=== PATIENT | female | born 1990 | race American Indian/Alaskan Native ===

== ENCOUNTER 2017-11-22 00:33 | Emergency (ER) | payer OTHER ==
[2017-11-22 02:33] LABS: Basophils % (Auto) 0.3 % (0.0-1.8); Eosinophils # (Auto) 0.1 K/mm3 (0.0-0.4); Eosinophils % (Auto) 0.8 % (0.0-4.3); Hematocrit 37.7 % (30.3-42.9); Hemoglobin 12.9 gm/dl (10.1-14.3); Lymphocytes # (Auto) 2.5 K/mm3 (1.2-5.4); Lymphocytes % (Auto) 21.8 % (13.4-35.0); Mean Corpuscular HGB Conc 34 % (30-34); Mean Corpuscular Hemoglobin 29 pg (28-32); Mean Corpuscular Volume 85 fl (79-97); Monocytes # (Auto) 0.7 K/mm3 (0.0-0.8); Monocytes % (Auto) 5.9 % (0.0-7.3); Platelet Count 296 K/mm3 (140-440); Red Blood Count 4.45 M/mm3 (3.65-5.03); Red Cell Distribution Width 14.8 % (13.2-15.2)
[2017-11-22 02:52] LABS: Alanine Aminotransferase 12 units/L (7-56); Albumin 3.7 g/dL (3.9-5); BUN/Creatinine Ratio 15; Blood Urea Nitrogen 6 mg/dL (7-17); Calcium 9.3 mg/dL (8.4-10.2); Hemolysis Index 12
[2017-11-22 03:13] LABS: Bilirubin,Urine NEG (Negative); Blood,Urine NEG (Negative); Color,Urine Yellow (Yellow); Protein,Urine <15 mg/dL mg/dL (Negative); Urobilinogen,Urine < 2.0 mg/dL (<2.0)
--- NOTE | 2017-11-22 07:07 | Emergency Department Report ---
ED Female HPI - General Chief complaint: Abdominal Pain Stated complaint: ABDOMINAL PAIN Time Seen by Provider: 11/22/17 06:50 Source: patient, RN notes reviewed Mode of arrival: Ambulatory Limitations: No Limitations - History of Present Illness Initial comments: This is a 27-year-old female who was previously unknown to this provider. She is 1, para 0. Last menstrual period is September 14. Reports an outpatient ultrasound, does not have a gifts officer so far. Presents to the ER with resolved left lower quadrant pain. Her pain was achy. It did not radiate anywhere. It had no exacerbating or relieving factors. Denies headache, neck pain, chest pain, vaginal bleeding urinary symptoms. She reports no pain at this time. Patient reports an outpatient ultrasound performed last week, which indicated an intrauterine . MD Complaint: other -: Gradual Radiation: LLQ Severity: mild Quality: cramping Consistency: now resolved Improves with: none Worsens with: none Are you Now?: Yes Associated Symptoms: other (constipation). denies: vaginal discharge, vaginal bleeding, abdominal pain, nausea/vomiting, fever/chills, headaches, loss of appetite, dysuria, hematuria, rash, seizure, shortness of breath, syncope, weakness - Related Data Sexually active: Yes Previous Rx's Medication Instructions Recorded Last Taken Type Cyclobenzaprine HCl [FLEXERIL] 5 mg PO TID PRN #15 tablet 06/21/13 Unknown Rx Ibuprofen [Motrin 800 MG tab] 800 mg PO TID PRN #25 tablet 06/21/13 Unknown Rx Sennosides Tab [Senokot] 8.6 mg PO BID #20 tablet 05/05/14 Unknown Rx Doxylamine Succinate/Vit B6 1 each PO QHS PRN #30 tablet. 11/22/17 Unknown Rx [Harlan Haro 10-10 mg Tablet] Vit Calc,Iron,Folic 1 each PO QDAY #30 tablet 11/22/17 Unknown Rx [ Vitamins] Allergies Allergy/AdvReac Type Severity Reaction Status Date / Time No Known Allergies Allergy Verified 06/21/13 21:36 ED Review of Systems ROS: Stated complaint: ABDOMINAL PAIN Other details as noted in HPI Comment: All other systems reviewed and negative ED Past Medical Hx - Past Medical History Previous Medical History?: No - Surgical History Past Surgical History?: No - Social History Smoking Status: Never Smoker Substance Use Type: None - Medications Home Medications: Home Medications Medication Instructions Recorded Confirmed Last Taken Type Cyclobenzaprine HCl [FLEXERIL] 5 mg PO TID PRN #15 tablet 06/21/13 Unknown Rx Ibuprofen [Motrin 800 MG tab] 800 mg PO TID PRN #25 tablet 06/21/13 Unknown Rx Sennosides Tab [Senokot] 8.6 mg PO BID #20 tablet 05/05/14 Unknown Rx Doxylamine Succinate/Vit B6 1 each PO QHS PRN #30 tablet. 11/22/17 Unknown Rx [Diclegis Dr 10-10 mg Tablet] Vit Calc,Iron,Folic 1 each PO QDAY #30 tablet 11/22/17 Unknown Rx [ Vitamins] ED Physical Exam - General Limitations: No Limitations General appearance: alert, in no apparent distress - Head Head exam: Present: atraumatic, normocephalic - Eye Eye exam: Present: normal appearance, EOMI. Absent: nystagmus - ENT ENT exam: Present: normal exam, normal orophraynx, mucous membranes moist, normal external ear exam - Neck Neck exam: Present: normal inspection, full ROM - Respiratory Respiratory exam: Present: normal lung sounds bilaterally. Absent: respiratory distress - Cardiovascular Cardiovascular Exam: Present: regular rate, normal rhythm, normal heart sounds. Absent: systolic murmur, diastolic murmur, rubs, gallop - GI/Abdominal GI/Abdominal exam: Present: soft, normal bowel sounds. Absent: distended, tenderness, guarding, rebound, rigid, pulsatile mass - Extremities Exam Extremities exam: Present: normal inspection, full ROM, normal capillary refill. Absent: pedal edema, joint swelling, calf tenderness - Back Exam Back exam: Present: normal inspection, full ROM. Absent: tenderness, CVA tenderness (R), paraspinal tenderness, vertebral tenderness - Neurological Exam Neurological exam: Present: alert, oriented X3, CN II-XII intact, normal gait, other (Extraocular movements intact. Tongue midline. No facial droop. Facial sensation intact to light touch in the V1, V2, V3 distribution bilaterally. 5 and 5 strength in 4 extremities.. Sensation is intact to light touch in 4 extremities.). Absent: motor sensory deficit - Psychiatric Psychiatric exam: Present: normal affect, normal mood - Skin Skin exam: Present: warm, dry, intact, normal color. Absent: rash ED Course Vital Signs 11/22/17 11/22/17 11/22/17 00:41 02:10 06:06 Temperature 98.7 F 98.7 F Pulse Rate 80 80 Respiratory 18 18 Rate Blood Pressure 104/63 104/63 Blood Pressure [Left] O2 Sat by Pulse 100 100 100 Oximetry 11/22/17 07:44 Temperature 98.3 F Pulse Rate 68 Respiratory 16 Rate Blood Pressure Blood Pressure 102/56 [Left] O2 Sat by Pulse 100 Oximetry - Reevaluation(s) Reevaluation #1: 11/22/17 07:06 Lab Results 11/22/17 11/22/17 11/22/17 Range/Units 02:14 02:21 02:21 WBC 11.3 H (4.5-11.0) K/mm3 RBC 4.45 (3.65-5.03) M/mm3 Hgb 12.9 (10.1-14.3) gm/dl Hct 37.7 (30.3-42.9) % MCV 85 (79-97) fl MCH 29 (28-32) pg MCHC 34 (30-34) % RDW 14.8 (13.2-15.2) % Plt Count 296 (140-440) K/mm3 Lymph % (Auto) 21.8 (13.4-35.0) % Osborne % (Auto) 5.9 (0.0-7.3) % Eos % (Auto) 0.8 (0.0-4.3) % Baso % (Auto) 0.3 (0.0-1.8) % Lymph # 2.5 (1.2-5.4) K/mm3 Osborne # 0.7 (0.0-0.8) K/mm3 Eos # 0.1 (0.0-0.4) K/mm3 Baso # 0.0 (0.0-0.1) K/mm3 Seg Neutrophils % 71.2 H (40.0-70.0) % Seg Neutrophils # 8.0 H (1.8-7.7) K/mm3 Sodium (137-145) mmol/L Potassium (3.6-5.0) mmol/L Chloride (98-107) mmol/L Carbon Dioxide (22-30) mmol/L Anion Gap mmol/L BUN (7-17) mg/dL Creatinine (0.7-1.2) mg/dL Estimated GFR ml/min BUN/Creatinine Ratio % Glucose (65-100) mg/dL Calcium (8.4-10.2) mg/dL Total Bilirubin (0.1-1.2) mg/dL AST (5-40) units/L ALT (7-56) units/L Alkaline Phosphatase (35-129) units/L Total Protein (6.3-8.2) g/dL Albumin (3.9-5) g/dL Albumin/Globulin Ratio % HCG, Quant 65256 H (0-4) mIU/mL Urine Color Yellow (Yellow) Urine Turbidity Clear (Clear) Urine pH 6.0 (5.0-7.0) Ur Specific Hamilton 1.013 (1.003-1.030) Urine Protein <15 mg/dl (Negative) mg/dL Urine Glucose (UA) Neg (Negative) mg/dL Urine Ketones Neg (Negative) mg/dL Urine Blood Neg (Negative) Urine Nitrite Neg (Negative) Urine Bilirubin Neg (Negative) Urine Urobilinogen < 2.0 (<2.0) mg/dL Ur Leukocyte Esterase Sm (Negative) Urine WBC (Auto) 3.0 (0.0-6.0) /HPF Urine RBC (Auto) 3.0 (0.0-6.0) /HPF U Epithel Cells (Auto) 4.0 (0-13.0) /HPF 11/22/17 Range/Units 02:21 WBC (4.5-11.0) K/mm3 RBC (3.65-5.03) M/mm3 Hgb (10.1-14.3) gm/dl Hct (30.3-42.9) % MCV (79-97) fl MCH (28-32) pg MCHC (30-34) % RDW (13.2-15.2) % Plt Count (140-440) K/mm3 Lymph % (Auto) (13.4-35.0) % Osborne % (Auto) (0.0-7.3) % Eos % (Auto) (0.0-4.3) % Baso % (Auto) (0.0-1.8) % Lymph # (1.2-5.4) K/mm3 Osborne # (0.0-0.8) K/mm3 Eos # (0.0-0.4) K/mm3 Baso # (0.0-0.1) K/mm3 Seg Neutrophils % (40.0-70.0) % Seg Neutrophils # (1.8-7.7) K/mm3 Sodium 133 L (137-145) mmol/L Potassium 3.5 L (3.6-5.0) mmol/L Chloride 96.0 L (98-107) mmol/L Carbon Dioxide 24 (22-30) mmol/L Anion Gap 17 mmol/L BUN 6 L (7-17) mg/dL Creatinine 0.4 L (0.7-1.2) mg/dL Estimated GFR > 60 ml/min BUN/Creatinine Ratio 15 % Glucose 92 (65-100) mg/dL Calcium 9.3 (8.4-10.2) mg/dL Total Bilirubin 0.20 (0.1-1.2) mg/dL AST 14 (5-40) units/L ALT 12 (7-56) units/L Alkaline Phosphatase 61 (35-129) units/L Total Protein 6.5 (6.3-8.2) g/dL Albumin 3.7 L (3.9-5) g/dL Albumin/Globulin Ratio 1.3 % HCG, Quant (0-4) mIU/mL Urine Color (Yellow) Urine Turbidity (Clear) Urine pH (5.0-7.0) Ur Specific Hamilton (1.003-1.030) Urine Protein (Negative) mg/dL Urine Glucose (UA) (Negative) mg/dL Urine Ketones (Negative) mg/dL Urine Blood (Negative) Urine Nitrite (Negative) Urine Bilirubin (Negative) Urine Urobilinogen (<2.0) mg/dL Ur Leukocyte Esterase (Negative) Urine WBC (Auto) (0.0-6.0) /HPF Urine RBC (Auto) (0.0-6.0) /HPF U Epithel Cells (Auto) (0-13.0) /HPF Vital Signs 11/22/17 11/22/17 11/22/17 00:41 02:10 06:06 Temperature 98.7 F 98.7 F Pulse Rate 80 80 Respiratory 18 18 Rate Blood Pressure 104/63 104/63 O2 Sat by Pulse 100 100 100 Oximetry Reevaluation #2: 0508/18 07:06 Differential diagnosis, including but not limited to: Miscarriage, threatened miscarriage, constipation Assessment and plan: 27-year-old female with no vaginal bleeding, no pain at this time, has a soft benign belly, with no rebound, guarding or peritoneal signs. There is no lower quadrant tenderness at this time. When this provider walks into the room to examine the patient, she is sleeping comfortably and in no distress. We do not have access to her outpatient ultrasound. We will repeat her obstetrics ultrasound. Laboratory studies reviewed, and are unremarkable at this time. Reevaluation #3: 11/22/17 07:45 Belly remained soft on repeat examination. Intrauterine is confirmed. Small subchorionic bleed is noted. Type and screen is pending. Patient is drinking without difficulty. ED Medical Decision Making - Lab Data Result diagrams: 11/22/17 02:21 11/22/17 02:21 Vital Signs 11/22/17 11/22/17 11/22/17 00:41 02:10 06:06 Temperature 98.7 F 98.7 F Pulse Rate 80 80 Respiratory 18 18 Rate Blood Pressure 104/63 104/63 Blood Pressure [Left] O2 Sat by Pulse 100 100 100 Oximetry 11/22/17 07:44 Temperature 98.3 F Pulse Rate 68 Respiratory 16 Rate Blood Pressure Blood Pressure 102/56 [Left] O2 Sat by Pulse 100 Oximetry Labs 11/22/17 11/22/17 11/22/17 02:14 02:21 02:21 WBC 11.3 H RBC 4.45 Hgb 12.9 Hct 37.7 MCV 85 MCH 29 MCHC 34 RDW 14.8 Plt Count 296 Lymph % (Auto) 21.8 Osborne % (Auto) 5.9 Eos % (Auto) 0.8 Baso % (Auto) 0.3 Lymph # 2.5 Osborne # 0.7 Eos # 0.1 Baso # 0.0 Seg Neutrophils % 71.2 H Seg Neutrophils # 8.0 H Sodium Potassium Chloride Carbon Dioxide Anion Gap BUN Creatinine Estimated GFR BUN/Creatinine Ratio Glucose Calcium Total Bilirubin AST ALT Alkaline Phosphatase Total Protein Albumin Albumin/Globulin Ratio HCG, Quant 29311 H Urine Color Yellow Urine Turbidity Clear Urine pH 6.0 Ur Specific Hamilton 1.013 Urine Protein <15 mg/dl Urine Glucose (UA) Neg Urine Ketones Neg Urine Blood Neg Urine Nitrite Neg Urine Bilirubin Neg Urine Urobilinogen < 2.0 Ur Leukocyte Esterase Sm Urine WBC (Auto) 3.0 Urine RBC (Auto) 3.0 U Epithel Cells (Auto) 4.0 11/22/17 02:21 WBC RBC Hgb Hct MCV MCH MCHC RDW Plt Count Lymph % (Auto) Osborne % (Auto) Eos % (Auto) Baso % (Auto) Lymph # Osborne # Eos # Baso # Seg Neutrophils % Seg Neutrophils # Sodium 133 L Potassium 3.5 L Chloride 96.0 L Carbon Dioxide 24 Anion Gap 17 BUN 6 L Creatinine 0.4 L Estimated GFR > 60 BUN/Creatinine Ratio 15 Glucose 92 Calcium 9.3 Total Bilirubin 0.20 AST 14 ALT 12 Alkaline Phosphatase 61 Total Protein 6.5 Albumin 3.7 L Albumin/Globulin Ratio 1.3 HCG, Quant Urine Color Urine Turbidity Urine pH Ur Specific Hamilton Urine Protein Urine Glucose (UA) Urine Ketones Urine Blood Urine Nitrite Urine Bilirubin Urine Urobilinogen Ur Leukocyte Esterase Urine WBC (Auto) Urine RBC (Auto) U Epithel Cells (Auto) - Radiology Data Radiology results: report reviewed, image reviewed Obstetrics ultrasound demonstrates 10 week intrauterine , small subchorionic hemorrhage Critical care attestation.: If time is entered above; I have spent that time in minutes in the direct care of this critically ill patient, excluding procedure time. ED Disposition Clinical Impression: Subchorionic hemorrhage Qualifiers: Fetus number: single or unspecified fetus Trimester: first trimester Qualified Code(s): O41.8X10 - Other specified disorders of amniotic fluid and membranes, first trimester, not applicable or unspecified; O46.8X1 - Other antepartum hemorrhage, first trimester Disposition: TO HOME OR SELFCARE Is pt being admited?: No Does the pt Need Aspirin: No Condition: Stable Instructions: Threatened Miscarriage (ED) Additional Instructions: Take medications as needed/directed. follow up with an [facility] doctor as soon as possible to continue care. Rest, and avoid heavy lifting and avoid strenuous physical activity. Do not have sex until cleared by a gifts officer. Return to the ER right away with new pain, worsening pain, migration of pain, fevers, chills, confusion, intractable nausea or vomiting, bleeding more than 2 pads per hour, lightheadedness, shortness of breath. Ultrasound demonstrated subchorionic hemorrhage which is a form of threatened miscarriage, therefore patient may have the potential to experience vaginal bleeding in the near future. Referrals: NEFTALI HAQUE MD [Primary Care Provider] - 3-5 Days [facility] [Provider Group] - 3-5 Days [facility] [Provider Group] - 3-5 Days [facility] [Provider Group] - 3-5 Days
--- NOTE | 2017-11-22 07:39 | Ultrasound Report ---
ULTRASOUND OB LESS THAN 14 WEEKS FETUS ULTRASOUND OB TRANSVAGINAL HISTORY: with abdominal pain. COMPARISON: No relevant comparison. TECHNIQUE: Transabdominal and transvaginal ultrasound with color doppler interrogation. FINDINGS: Uterus: The uterus is anteverted and measures 13 x 7 x 9 cm. No uterine mass is appreciated. Normal cervix. Endometrium: A viable intrauterine is identified with heart rate measuring 166 beats per minute. [place] rump length correlates with a 10 week, 0 day . Estimated due date 06/20/18. A small subchorionic hemorrhage is identified along the anterior border of the gestational sac measuring less than 1 cm. Right ovary: 3.6 x 2.5 x 2.6 cm. No focal abnormality. Left ovary: 3.0 x 1.3 x 2.0 cm. No focal abnormality. No pelvic fluid or mass is identified. Normal color doppler interrogation. IMPRESSION: Viable intrauterine as described. Small subchorionic hemorrhage.
[2017-11-22 07:45] VITALS: BP 102/56
== END 2017-11-22 09:00 | disposition home or self-care (01) ==
LOC: ED 00:33
DX: O46.91 Antepartum hemorrhage, unspecified, first trimester (principal); Z3A.10 10 weeks gestation of pregnancy
CPT/HCPCS: 36415; 76801; 76817; 80053; 81001; 84702; 85025; 86850; 86900; 86901; 99284

== ENCOUNTER 2017-12-07 11:15 | Emergency (ER) | payer OTHER, MEDICAID ==
[2017-12-07 11:26] VITALS: BP 112/71
[2017-12-07 12:08] LABS: Bacteria,Urine 4+ /HPF (Negative); Bilirubin,Urine NEG (Negative); Blood,Urine MOD (Negative); Color,Urine Yellow (Yellow); Mucus,Urine FEW /HPF; Protein,Urine <15 mg/dL mg/dL (Negative)
[2017-12-07 12:24] LABS: Basophils # (Auto) 0.1 K/mm3 (0.0-0.1); Basophils % (Auto) 0.7 % (0.0-1.8); Eosinophils % (Auto) 0.4 % (0.0-4.3); Hematocrit 38.7 % (30.3-42.9); Hemoglobin 13.5 gm/dl (10.1-14.3); Lymphocytes # (Auto) 1.8 K/mm3 (1.2-5.4); Lymphocytes % (Auto) 18.7 % (13.4-35.0); Mean Corpuscular HGB Conc 35 % (30-34); Mean Corpuscular Hemoglobin 29 pg (28-32); Mean Corpuscular Volume 85 fl (79-97); Monocytes # (Auto) 0.7 K/mm3 (0.0-0.8); Monocytes % (Auto) 7.3 % (0.0-7.3); Red Blood Count 4.58 M/mm3 (3.65-5.03); Red Cell Distribution Width 14.1 % (13.2-15.2)
[2017-12-07 12:26] LABS: Platelet Count 286 K/mm3 (140-440)
--- NOTE | 2017-12-07 14:12 | Ultrasound Report ---
ULTRASOUND OB LESS THAN 14 WEEKS FETUS History: Vaginal bleeding during . Technique: Transabdominal ultrasound. Comparison: 11/22/17. Findings: The uterus measures 14 x 8 x 10 cm. No uterine mass. The cervix is obscured. An intrauterine is identified with heart rate measuring 156 beats per minute. Estimated age on ultrasound is 12 weeks, 3 days. No subchorionic hemorrhage is appreciated. The placenta appears to be forming posteriorly. Amniotic fluid volume appears normal. The ovaries are normal size, contour and echotexture. No pelvic fluid collection. Impression: Viable, single intrauterine as described. No acute abnormality is identified.
[2017-12-07] MEDS ORDERED: KEPPRA 1,000 MG/NS 0.75% 100ML 1,000 MG/100 ML BAG IV ONE (14:34)
[2017-12-07] MEDS ORDERED: NACL 0.9% 1000 ML 1,000 ML ONE (14:34)
--- NOTE | 2017-12-07 16:35 | Emergency Department Report ---
ED HPI - General Chief complaint: Vaginal Bleeding Stated complaint: BLEEDING/3 MONTHS Time Seen by Provider: 12/07/17 16:29 Source: patient Mode of arrival: Ambulatory Limitations: No Limitations - History of Present Illness Initial comments: This is a 27-year-old female nontoxic, well nourished in appearance, no acute signs of distress presents to the ED with c/o of vaginal bleeding x1 day. Patient stated this occurred 2 times yesterday but denies any vaginal spotting today. Patient denies any abdominal or pelvic pain. Patient denies any nausea, vomiting, chest pain, shortness of breathe, fever, chills, headache, stiff neck , numbness, tingling. Patient denies any urinary symptoms. Patient denies any allergies or PMH. MD Complaint: vaginal bleeding -: days(s) (1) Radiation: none Severity: mild Severity scale (0 -10): 0 Consistency: now resolved Improves with: none Worsens with: none Associated symptoms: vaginal bleeding. denies: nausea/vomiting, vaginal discharge, abdominal pain, dysuria, headache, vision changes, malaise, dysparuenia, rash, seizure, shortness of breath, syncope, weakness Vaginal bleeding: none :: Yes Number of weeks : 12 Pre-christiano care: followed by OB - Related Data : 0 Para: 1 Previous Rx's Medication Instructions Recorded Last Taken Type Cyclobenzaprine HCl [FLEXERIL] 5 mg PO TID PRN #15 tablet 06/21/13 Unknown Rx Ibuprofen [Motrin 800 MG tab] 800 mg PO TID PRN #25 tablet 06/21/13 Unknown Rx Sennosides Tab [Senokot] 8.6 mg PO BID #20 tablet 05/05/14 Unknown Rx Doxylamine Succinate/Vit B6 1 each PO QHS PRN #30 tablet. 11/22/17 Unknown Rx [Harlan Haro 10-10 mg Tablet] Vit Calc,Iron,Folic 1 each PO QDAY #30 tablet 11/22/17 Unknown Rx [ Vitamins] Nitrofurantoin Monohyd/M-Cryst 100 mg PO BID #14 capsule 12/07/17 Unknown Rx [Macrobid 100 mg Capsule] Allergies Allergy/AdvReac Type Severity Reaction Status Date / Time No Known Allergies Allergy Verified 12/07/17 15:05 ED Review of Systems ROS: Stated complaint: BLEEDING/3 MONTHS Other details as noted in HPI Constitutional: denies: chills, fever Eyes: denies: eye pain, eye discharge, vision change ENT: denies: ear pain, throat pain Respiratory: denies: cough, shortness of breath, wheezing Cardiovascular: denies: chest pain, palpitations Endocrine: no symptoms reported Gastrointestinal: denies: abdominal pain, nausea, diarrhea Genitourinary: denies: urgency, dysuria, discharge Musculoskeletal: denies: back pain, joint swelling, arthralgia Skin: denies: rash, lesions Neurological: denies: headache, weakness, paresthesias Psychiatric: denies: anxiety, depression Hematological/Lymphatic: denies: easy bleeding, easy bruising ED Past Medical Hx - Past Medical History Previous Medical History?: No - Surgical History Past Surgical History?: No - Social History Smoking Status: Never Smoker - Medications Home Medications: Home Medications Medication Instructions Recorded Confirmed Last Taken Type Cyclobenzaprine HCl [FLEXERIL] 5 mg PO TID PRN #15 tablet 06/21/13 Unknown Rx Ibuprofen [Motrin 800 MG tab] 800 mg PO TID PRN #25 tablet 06/21/13 Unknown Rx Sennosides Tab [Senokot] 8.6 mg PO BID #20 tablet 05/05/14 Unknown Rx Doxylamine Succinate/Vit B6 1 each PO QHS PRN #30 tablet. 11/22/17 Unknown Rx [Diclegis Dr 10-10 mg Tablet] Vit Calc,Iron,Folic 1 each PO QDAY #30 tablet 11/22/17 Unknown Rx [ Vitamins] Nitrofurantoin Monohyd/M-Cryst 100 mg PO BID #14 capsule 12/07/17 Unknown Rx [Macrobid 100 mg Capsule] ED Physical Exam - General Limitations: No Limitations General appearance: alert, in no apparent distress - Head Head exam: Present: atraumatic, normocephalic - Eye Eye exam: Present: normal appearance Pupils: Present: normal accommodation - ENT ENT exam: Present: normal exam, mucous membranes moist - Neck Neck exam: Present: normal inspection, full ROM - Respiratory Respiratory exam: Present: normal lung sounds bilaterally. Absent: respiratory distress, wheezes, rales, rhonchi, stridor - Cardiovascular Cardiovascular Exam: Present: regular rate, normal rhythm, normal heart sounds. Absent: irregular rhythm, systolic murmur, diastolic murmur, rubs, gallop - GI/Abdominal GI/Abdominal exam: Present: soft, normal bowel sounds. Absent: distended, tenderness, guarding, rebound, rigid, diminished bowel sounds - Rectal Rectal exam: Present: deferred - Extremities Exam Extremities exam: Present: normal inspection, full ROM, normal capillary refill - Back Exam Back exam: Present: normal inspection, full ROM - Neurological Exam Neurological exam: Present: alert, oriented X3, normal gait - Psychiatric Psychiatric exam: Present: normal affect, normal mood - Skin Skin exam: Present: warm, dry, intact, normal color. Absent: rash ED Course Vital Signs 12/07/17 12/07/17 11:22 15:25 Temperature 98.7 F Pulse Rate 100 H Respiratory 20 18 Rate Blood Pressure 112/71 O2 Sat by Pulse 99 99 Oximetry - Reevaluation(s) Reevaluation #1: 12/07/17 16:34 Patient is speaking in full sentences with no signs of distress noted. ED Medical Decision Making - Lab Data Result diagrams: 12/07/17 12:05 - Medical Decision Making This is a 27-year-old female presents with threatened miscarriage and UTI. Patient is stable and was examined by me. Normal abdominal exam. US OB obtained and dictated by the radiologist. Quantative serum test obtained. Patient notified of the US report with no questions noted by the patient. UA shows UTI. Patient was instructed to return in 2 days to follow up with a OB/ [facility] or to emergency room for a reevaluation of serum quantative test with possible ultrasound. RH factor positive. Labs within normal limits. Patient was referred to Follow-up with a [facility] in 3-5 days or if symptoms worsen and continue return to emergency room as soon as possible. At time of discharge, the patient does not seem toxic or ill in appearance. No acute signs of distress noted. Patient agrees to discharge treatment plan of care. No further questions noted by the patient. Critical care attestation.: If time is entered above; I have spent that time in minutes in the direct care of this critically ill patient, excluding procedure time. ED Disposition Clinical Impression: Threatened miscarriage UTI (urinary tract infection) Qualifiers: Urinary tract infection type: site unspecified Hematuria presence: with hematuria Qualified Code(s): N39.0 - Urinary tract infection, site not specified Disposition: DC-01 TO HOME OR SELFCARE Is pt being admited?: No Does the pt Need Aspirin: No Condition: Stable Instructions: Threatened Miscarriage (ED), Urinary Tract Infection in Women (ED ) Additional Instructions: Follow-up with a [facility] in 2 days for a repeat HCG levels or if symptoms worsen and continue return to emergency room as soon as possible. Prescriptions: Nitrofurantoin Monohyd/M-Cryst [Macrobid 100 mg Capsule] 100 mg PO BID #14 capsule Referrals: PRIMARY CAREMD [Primary Care Provider] - 3-5 Days KATH GIL MD [Staff Physician] - 3-5 Days [facility] [Outside] - 3-5 Days [facility] [Outside] - 3-5 Days Forms: Work/School Release Form(ED)
== END 2017-12-07 17:04 | disposition home or self-care (01) ==
LOC: ED 11:15
DX: O20.0 Threatened abortion (principal); O23.41 Unspecified infection of urinary tract in pregnancy, first trimester; Z3A.12 12 weeks gestation of pregnancy
CPT/HCPCS: 36415; 76801; 81001; 84702; 85025; 86850; 86900; 86901; 99284; J1953; J7030

== ENCOUNTER 2020-11-29 06:36 | Emergency (ER) | payer MEDICAID ==
[2020-11-29 07:22] LABS: Basophils % (Auto) 0.4 % (0.0-1.8); Eosinophils % (Auto) 0.5 % (0.0-4.3); Hematocrit 41.7 % (30.3-42.9); Hemoglobin 14.5 gm/dl (10.1-14.3); Lymphocytes % (Auto) 20.1 % (13.4-35.0); Mean Corpuscular HGB Conc 35 % (30-34); Mean Corpuscular Volume 86 fl (79-97); Monocytes # (Auto) 0.7 K/mm3 (0.0-0.8); Monocytes % (Auto) 6.7 % (0.0-7.3); Platelet Count 403 K/mm3 (140-440); Red Blood Count 4.87 M/mm3 (3.65-5.03); Red Cell Distribution Width 13.5 % (13.2-15.2)
[2020-11-29 07:38] LABS: Alanine Aminotransferase 20 units/L (7-56); Albumin 3.9 g/dL (3.9-5); Blood Urea Nitrogen 6 mg/dL (7-17); Calcium 8.9 mg/dL (8.4-10.2); Hemolysis Index 24
[2020-11-29 07:47] LABS: Bilirubin,Urine NEG (Negative); Blood,Urine MOD (Negative); Color,Urine Yellow (Yellow); Mucus,Urine FEW /HPF
[2020-11-29 07:52] LABS: BUN/Creatinine Ratio 10
[2020-11-29] MEDS ORDERED: ONDANSETRON 4 MG ODT TAB PO ONE (10:11)
[2020-11-29] MEDS ORDERED: HYOSCYAMINE SUBL 0.125 MG TAB SL ONE (10:11)
[2020-11-29] MEDS ORDERED: oxyCODONE /ACETAMINOPHEN 5-325MG TAB PO ONE (10:11)
--- NOTE | 2020-11-29 10:53 | Emergency Department Report ---
ED General Adult HPI - General Chief complaint: Abdominal Pain Stated complaint: ABDOMICAL PAIN;FREQUENT URINATION Time Seen by Provider: 11/29/20 10:10 Source: patient Mode of arrival: Ambulatory Limitations: No Limitations - History of Present Illness Initial comments: 30-year-old female without significant past medical history presenting with chief complaint of constant abdominal pain, gradual onset 5 days ago about 15 minutes after eating some pizza. She states the pain does not go away but sometimes is worse than others. She denies any nausea vomiting diarrhea constipation dysuria or frequency. Denies any fever. States that it is located in the upper abdomen and does not really radiate. Pain is moderate to severe, nothing makes it better or worse. - Related Data Home Medications Medication Instructions Recorded Confirmed Last Taken valACYclovir [Valtrex] 1 tab PO QDAY 06/14/18 06/14/18 06/13/18 Previous Rx's Medication Instructions Recorded Last Taken Type Vit Calc,Iron,Folic 1 each PO QDAY #30 tablet 11/22/17 06/13/18 Rx [ Vitamins] Ibuprofen [Motrin] 600 mg PO Q8H PRN #30 tablet 06/15/18 Unknown Rx oxyCODONE /ACETAMINOPHEN [Percocet 1 tab PO Q4HR #30 tab 06/15/18 Unknown Rx 5/325] Hyoscyamine Subl [Levsin Sl 0.125 0.125 mg SL Q6HR PRN #12 tab 11/29/20 Unknown Rx TAB] Promethazine [Phenergan] 25 mg PO Q6HR PRN #12 tab 11/29/20 Unknown Rx traMADoL [Ultram 50 MG tab] 50 mg PO Q6HR PRN #12 tablet 11/29/20 Unknown Rx Allergies Allergy/AdvReac Type Severity Reaction Status Date / Time No Known Allergies Allergy Verified 12/07/17 15:05 ED Review of Systems ROS: Stated complaint: ABDOMICAL PAIN;FREQUENT URINATION Other details as noted in HPI Comment: All other systems reviewed and negative ED Past Medical Hx - Past Medical History Previous Medical History?: No Hx Hypertension: No Hx Congestive Heart Failure: No Hx Diabetes: No Hx Deep Vein Thrombosis: No Hx Renal Disease: No Hx Sickle Cell Disease: No Hx Seizures: No Hx Asthma: No Hx COPD: No Hx HIV: No - Surgical History Past Surgical History?: Yes Additional Surgical History: colonoscopy - Social History Smoking Status: Never Smoker Substance Use Type: None - Medications Home Medications: Home Medications Medication Instructions Recorded Confirmed Last Taken Type Vit Calc,Iron,Folic 1 each PO QDAY #30 tablet 11/22/17 06/14/1806/13 Rx [ Vitamins] valACYclovir [Valtrex] 1 tab PO QDAY 06/14/18 06/14/18 06/13/18 History Ibuprofen [Motrin] 600 mg PO Q8H PRN #30 tablet 06/15/18 Unknown Rx oxyCODONE /ACETAMINOPHEN [Percocet 1 tab PO Q4HR #30 tab 06/15/18 Unknown Rx 5/325] Hyoscyamine Subl [Levsin Sl 0.125 0.125 mg SL Q6HR PRN #12 tab 11/29/20 Unknown Rx TAB] Promethazine [Phenergan] 25 mg PO Q6HR PRN #12 tab 11/29/20 Unknown Rx traMADoL [Ultram 50 MG tab] 50 mg PO Q6HR PRN #12 tablet 11/29/20 Unknown Rx ED Physical Exam - General Limitations: No Limitations General appearance: alert, in no apparent distress - Head Head exam: Present: atraumatic, normocephalic - Eye Eye exam: Present: normal appearance - ENT ENT exam: Present: mucous membranes moist - Neck Neck exam: Present: normal inspection - Respiratory Respiratory exam: Present: normal lung sounds bilaterally. Absent: respiratory distress - Cardiovascular Cardiovascular Exam: Present: regular rate, normal rhythm. Absent: systolic murmur, diastolic murmur, rubs, gallop - GI/Abdominal GI/Abdominal exam: Present: soft, tenderness (Right upper quadrant/epigastric), normal bowel sounds. Absent: guarding, rebound - Extremities Exam Extremities exam: Present: normal inspection - Back Exam Back exam: Present: normal inspection - Neurological Exam Neurological exam: Present: alert, oriented X3 - Psychiatric Psychiatric exam: Present: normal affect, normal mood - Skin Skin exam: Present: warm, dry, intact, normal color. Absent: rash ED Course Vital Signs 11/29/20 06:55 Temperature 99.2 F Pulse Rate 86 Respiratory 18 Rate Blood Pressure 123/80 O2 Sat by Pulse 99 Oximetry ED Medical Decision Making - Lab Data Result diagrams: 11/29/20 07:01 11/29/20 07:01 Lab Results 05/11/29/20 11/29/20 Range/Units 07:01 07:01 07:01 WBC 9.8 (4.5-11.0) K/mm3 RBC 4.87 (3.65-5.03) M/mm3 Hgb 14.5 H (10.1-14.3) gm/dl Hct 41.7 (30.3-42.9) % MCV 86 (79-97) fl MCH 30 (28-32) pg MCHC 35 H (30-34) % RDW 13.5 (13.2-15.2) % Plt Count 403 (140-440) K/mm3 Lymph % (Auto) 20.1 (13.4-35.0) % [place] % (Auto) 6.7 (0.0-7.3) % Eos % (Auto) 0.5 (0.0-4.3) % Baso % (Auto) 0.4 (0.0-1.8) % Lymph # (Auto) 2.0 (1.2-5.4) K/mm3 [place] # (Auto) 0.7 (0.0-0.8) K/mm3 Eos # (Auto) 0.0 (0.0-0.4) K/mm3 Baso # (Auto) 0.0 (0.0-0.1) K/mm3 Seg Neutrophils % 72.3 H (40.0-70.0) % Seg Neutrophils # 7.1 (1.8-7.7) K/mm3 Sodium 134 L (137-145) mmol/L Potassium 3.8 (3.6-5.0) mmol/L Chloride 99.3 (98-107) mmol/L Carbon Dioxide 25 (22-30) mmol/L Anion Gap 14 mmol/L BUN 6 L (7-17) mg/dL Creatinine 0.6 (0.6-1.2) mg/dL Estimated GFR > 60 ml/min BUN/Creatinine Ratio 10 % Glucose 101 H (65-100) mg/dL Calcium 8.9 (8.4-10.2) mg/dL Total Bilirubin 0.30 (0.1-1.2) mg/dL AST 20 (5-40) units/L ALT 20 (7-56) units/L Alkaline Phosphatase 114 (35-129) units/L Total Protein 7.6 (6.3-8.2) g/dL Albumin 3.9 (3.9-5) g/dL Albumin/Globulin Ratio 1.1 % Lipase (13-60) units/L HCG, Qual Negative (Negative) Urine Color (Yellow) Urine Turbidity (Clear) Urine pH (5.0-7.0) Ur Specific [place] (1.003-1.030) Urine Protein (Negative) mg/dL Urine Glucose (UA) (Negative) mg/dL Urine Ketones (Negative) mg/dL Urine Blood (Negative) Urine Nitrite (Negative) Urine Bilirubin (Negative) Urine Urobilinogen (<2.0) mg/dL Ur Leukocyte Esterase (Negative) Urine WBC (Auto) (0.0-6.0) /HPF Urine RBC (Auto) (0.0-6.0) /HPF U Epithel Cells (Auto) (0-13.0) /HPF Urine Mucus /HPF 11/29/20 11/29/20 Range/Units 07:01 07:23 WBC (4.5-11.0) K/mm3 RBC (3.65-5.03) M/mm3 Hgb (10.1-14.3) gm/dl Hct (30.3-42.9) % MCV (79-97) fl MCH (28-32) pg MCHC (30-34) % RDW (13.2-15.2) % Plt Count (140-440) K/mm3 Lymph % (Auto) (13.4-35.0) % [place] % (Auto) (0.0-7.3) % Eos % (Auto) (0.0-4.3) % Baso % (Auto) (0.0-1.8) % Lymph # (Auto) (1.2-5.4) K/mm3 [place] # (Auto) (0.0-0.8) K/mm3 Eos # (Auto) (0.0-0.4) K/mm3 Baso # (Auto) (0.0-0.1) K/mm3 Seg Neutrophils % (40.0-70.0) % Seg Neutrophils # (1.8-7.7) K/mm3 Sodium (137-145) mmol/L Potassium (3.6-5.0) mmol/L Chloride (98-107) mmol/L Carbon Dioxide (22-30) mmol/L Anion Gap mmol/L BUN (7-17) mg/dL Creatinine (0.6-1.2) mg/dL Estimated GFR ml/min BUN/Creatinine Ratio % Glucose (65-100) mg/dL Calcium (8.4-10.2) mg/dL Total Bilirubin (0.1-1.2) mg/dL AST (5-40) units/L ALT (7-56) units/L Alkaline Phosphatase (35-129) units/L Total Protein (6.3-8.2) g/dL Albumin (3.9-5) g/dL Albumin/Globulin Ratio % Lipase 28 (13-60) units/L HCG, Qual (Negative) Urine Color Yellow (Yellow) Urine Turbidity Slightly-cloudy (Clear) Urine pH 5.0 (5.0-7.0) Ur Specific [place] 1.024 (1.003-1.030) Urine Protein 30 mg/dl (Negative) mg/dL Urine Glucose (UA) Neg (Negative) mg/dL Urine Ketones Neg (Negative) mg/dL Urine Blood Mod (Negative) Urine Nitrite Neg (Negative) Urine Bilirubin Neg (Negative) Urine Urobilinogen 2.0 (<2.0) mg/dL Ur Leukocyte Esterase Tr (Negative) Urine WBC (Auto) 4.0 (0.0-6.0) /HPF Urine RBC (Auto) 4.0 (0.0-6.0) /HPF U Epithel Cells (Auto) 15.0 H (0-13.0) /HPF Urine Mucus Few /HPF - Radiology Data Radiology results: report reviewed Biliary sludge however no evidence of cholecystitis on right upper quadrant ultrasound - Medical Decision Making Patient presenting with abdominal pain for the past 5 days without any other associated symptoms. On my exam nontoxic, no distress, normal heart sounds, clear lungs, abdomen with right upper quadrant as well as epigastric tenderness, no peritonitis. Labs, right upper quadrant ultrasound pending. Patient was given Percocet, Zofran, Levsin. On reassessment patient is resting comfortably and in no distress. Labs are within normal limits. Right upper quadrant ultrasound shows biliary sludge, no evidence of cholecystitis. Clinically patient is afebrile with normal liver function test and normal white blood cell count. I feel that she is stable for outpatient surgical follow-up I have given strict return precautions. - Differential Diagnosis Biliary colic, cholecystitis, choledocholithiasis, gastritis, peptic ulcer Critical care attestation.: If time is entered above; I have spent that time in minutes in the direct care of this critically ill patient, excluding procedure time. ED Disposition Clinical Impression: Biliary sludge, Biliary colic Disposition: TO HOME OR SELFCARE Is pt being admited?: No Condition: Good Instructions: Abdominal Pain (ED), Biliary Colic, Adult Prescriptions: Hyoscyamine Subl [Levsin Sl 0.125 TAB] 0.125 mg SL Q6HR PRN #12 tab PRN Reason: abdominal pain Promethazine [Phenergan] 25 mg PO Q6HR PRN #12 tab PRN Reason: Nausea traMADoL [Ultram 50 MG tab] 50 mg PO Q6HR PRN #12 tablet PRN Reason: Pain Referrals: ALEJANDRA GAMBOA MD [Staff Physician] - 3-5 Days Time of Disposition: 12:09
[2020-11-29] MEDS ORDERED: ONDANSETRON 4 MG/2 ML INJ IM ONE (11:22)
--- NOTE | 2020-11-29 12:01 | Ultrasound Report ---
ULTRASOUND ABDOMEN, LIMITED (RIGHT UPPER QUADRANT) INDICATION / CLINICAL INFORMATION: RUQ pain. COMPARISON: None available. FINDINGS: PANCREAS: Visualized portion shows no significant abnormality. LIVER: No significant abnormality. GALLBLADDER: Biliary sludge seen layering in the gallbladder lumen. The gallbladder wall is within no rmal limits for thickness. No pericholecystic fluid. BILE DUCTS: No significant abnormality. Common bile duct measures mm. FREE FLUID: None. ADDITIONAL FINDINGS: None. IMPRESSION: 1. Biliary sludge seen layering in the gallbladder lumen. No evidence of acute cholecystitis. Signer Name: Jeovanny Mckay MD Signed: 11/29/2020 11:56 AM Workstation Name: [id number]
[2020-11-29 13:27] VITALS: BP 124/70
== END 2020-11-29 13:05 | disposition home or self-care (01) ==
LOC: ED 06:36
DX: K80.50 Calculus of bile duct without cholangitis or cholecystitis without obstruction (principal); K83.9 Disease of biliary tract, unspecified; Z98.890 Other specified postprocedural states; Z79.1 Long term (current) use of non-steroidal anti-inflammatories (NSAID); Z79.899 Other long term (current) drug therapy
CPT/HCPCS: 36415; 76705; 80053; 81001; 83690; 84703; 85025; 96372; 99284; J2405; Q0162

== ENCOUNTER 2021-11-12 07:43 | Emergency (ER) | payer MEDICAID ==
--- NOTE | 2021-11-12 10:35 | Emergency Department Report ---
ED HPI - General Chief complaint: Vaginal Bleeding Stated complaint: 12 WKS /BLEEDING Time Seen by Provider: 11/12/21 10:12 Source: patient Mode of arrival: Ambulatory Limitations: No Limitations - History of Present Illness Initial comments: 31-year-old female is currently about 12 weeks presents to the ER today with complaints of vaginal bleeding. Patient states that the bleeding started this morning. She states that the bleeding is similar to that of her menstrual cycle. She states that she has had to use 1 pad since she started bleeding this morning. She reports mild intermittent abdominal cramping. She denies any abnormal discharge, UTI symptoms or any additional symptoms. She is G2, P1 Ab0. [employer] is at [facility] and she has had a ultrasound at the office a few weeks prior which showed a normal IUP. Her last known menstrual cycle was August 2021. Complaint: vaginal bleeding -: This morning - Related Data Home Medications Medication Instructions Recorded Confirmed Last Taken valACYclovir [Valtrex] 1 tab PO QDAY 06/14/18 06/14/18 06/13/18 Previous Rx's Medication Instructions Recorded Last Taken Type Vit Calc,Iron,Folic 1 each PO QDAY #30 tablet 11/22/17 06/13/18 Rx [ Vitamins] Promethazine [Phenergan] 25 mg PO Q6HR PRN #12 tab 11/29/20 Unknown Rx cephALEXin [Keflex] 500 mg PO Q8HR #15 cap 11/12/21 Unknown Rx Allergies Allergy/AdvReac Type Severity Reaction Status Date / Time No Known Allergies Allergy Verified 12/07/17 15:05 ED Review of Systems ROS: Stated complaint: 12 WKS /BLEEDING Other details as noted in HPI Comment: All other systems reviewed and negative Constitutional: denies: chills, fever Respiratory: denies: cough, shortness of breath, wheezing Cardiovascular: denies: chest pain, palpitations Gastrointestinal: abdominal pain. denies: nausea, vomiting, diarrhea, constipation, hematemesis, melena, hematochezia Genitourinary: other (Positive ; positive vaginal bleeding). denies: urgency, dysuria, frequency, hematuria, discharge, abnormal menses, dyspareunia Skin: denies: rash, lesions, change in color, change in hair/nails, pruritus Neurological: denies: headache, weakness, paresthesias, abnormal gait, vertigo Psychiatric: denies: anxiety, depression, auditory hallucinations, visual hallucinations, homicidal thoughts, suicidal thoughts Hematological/Lymphatic: denies: easy bleeding, easy bruising, swollen glands ED Past Medical Hx - Past Medical History Previous Medical History?: No Hx Hypertension: No Hx Congestive Heart Failure: No Hx Diabetes: No Hx Deep Vein Thrombosis: No Hx Renal Disease: No Hx Sickle Cell Disease: No Hx Seizures: No Hx Asthma: No Hx COPD: No Hx HIV: No - Surgical History Past Surgical History?: Yes Additional Surgical History: colonoscopy - Social History Smoking Status: Never Smoker Substance Use Type: None - Medications Home Medications: Home Medications Medication Instructions Recorded Confirmed Last Taken Type Vit Calc,Iron,Folic 1 each PO QDAY #30 tablet 11/22/17 06/14/18 06/13/18 Rx [ Vitamins] valACYclovir [Valtrex] 1 tab PO QDAY 06/14/18 06/14/18 06/13/18 History Promethazine [Phenergan] 25 mg PO Q6HR PRN #12 tab 11/29/20 Unknown Rx cephALEXin [Keflex] 500 mg PO Q8HR #15 cap 11/12/21 Unknown Rx ED Physical Exam - General Limitations: No Limitations General appearance: alert, in no apparent distress, obese - Head Head exam: Present: atraumatic, normocephalic, normal inspection - Eye Eye exam: Present: normal appearance, PERRL, EOMI Pupils: Present: normal accommodation - Respiratory Respiratory exam: Present: normal lung sounds bilaterally. Absent: respiratory distress, wheezes, rales, rhonchi - Cardiovascular Cardiovascular Exam: Present: regular rate, normal rhythm, normal heart sounds - GI/Abdominal GI/Abdominal exam: Present: soft. Absent: distended, tenderness, guarding, rebound, rigid - Neurological Exam Neurological exam: Present: alert, oriented X3, CN II-XII intact, normal gait - Psychiatric Psychiatric exam: Present: normal affect, normal mood - Skin Skin exam: Present: intact ED Course Vital Signs 11/12/21 08:00 Temperature 98.6 F Pulse Rate 87 Respiratory 18 Rate Blood Pressure 112/70 O2 Sat by Pulse 98 Oximetry ED Medical Decision Making - Lab Data Result diagrams: 11/12/21 11:10 11/12/21 11:10 Laboratory Tests 11/12/21 11/12/2122 10:40 11:10 11:10 WBC 9.1 RBC 4.88 Hgb 13.4 Hct 40.7 MCV 84 MCH 28 MCHC 33 RDW 14.5 Plt Count 341 Lymph % (Auto) 19.3 [place] % (Auto) 6.3 Eos % (Auto) 0.8 Baso % (Auto) 0.6 Lymph # (Auto) 1.8 [place] # (Auto) 0.6 Eos # (Auto) 0.1 Baso # (Auto) 0.1 Seg Neutrophils % 73.0 H Seg Neutrophils # 6.6 Sodium 136 L Potassium 4.4 Chloride 100.6 Carbon Dioxide 23 Anion Gap 17 BUN 4 L Glucose 75 Calcium 9.3 Total Bilirubin 0.30 AST 13 ALT 13 Alkaline Phosphatase 91 Total Protein 6.7 Albumin 4.0 Albumin/Globulin Ratio 1.5 Urine Color [place]ra Urine Turbidity Clear Urine pH 6.0 Ur Specific [place] 1.025 Urine Protein 30 mg/dl Urine Glucose (UA) Neg Urine Ketones 20 Urine Blood Lg Urine Nitrite Neg Urine Bilirubin Neg Urine Urobilinogen 2.0 Ur Leukocyte Esterase Sm Urine WBC (Auto) 46.0 H Urine RBC (Auto) 14.0 U Epithel Cells (Auto) 72.0 H Urine Mucus 2+ Urine Yeast (Budding) 1+ Blood Type Ord Rhogam Gestat Weeks 11/12/21 11:10 WBC RBC Hgb Hct MCV MCH MCHC RDW Plt Count Lymph % (Auto) [place] % (Auto) Eos % (Auto) Baso % (Auto) Lymph # (Auto) [place] # (Auto) Eos # (Auto) Baso # (Auto) Seg Neutrophils % Seg Neutrophils # Sodium Potassium Chloride Carbon Dioxide Anion Gap BUN Glucose Calcium Total Bilirubin AST ALT Alkaline Phosphatase Total Protein Albumin Albumin/Globulin Ratio Urine Color Urine Turbidity Urine pH Ur Specific [place] Urine Protein Urine Glucose (UA) Urine Ketones Urine Blood Urine Nitrite Urine Bilirubin Urine Urobilinogen Ur Leukocyte Esterase Urine WBC (Auto) Urine RBC (Auto) U Epithel Cells (Auto) Urine Mucus Urine Yeast (Budding) Blood Type B POSITIVE Ord Rhogam Gestat Weeks pos - Radiology Data Radiology results: report reviewed [facility] [address] [place] [address] Ultrasound Report Signed Patient: AB MORLEY MR#: [id number] : 1990 Acct:[id number] Age/Sex: 31 / F ADM Date: 11/12/21 Loc: ED Attending Dr: Ordering Physician: FEDERICO SHERIDAN Date of Service: 11/12/21 Procedure(s): OB transvaginal Accession Number(s): [id number] cc: FEDERICO SHERIDAN FIRSTTRIMESTER OBSTETRIC ULTRASOUND HISTORY: Vaginal bleeding during COMPARISON: None. TECHNIQUE: Routine transvaginal OB ultrasound performed. FINDINGS: Uterus: Mildly enlarged measuring 14 x 9 x 9 cm. Gestational Sac: Well-defined oval shape and intrauterine in location. Yolk Sac: Normal in appearance. Fetus/Embryo: [place]-rump length of 5.05 cm, corresponding to an estimated gestational age of 11 weeks 5 days. Embryonic/ anatomy is too small for evaluation. Embryonic/ cardiac activity: 162bpm Placenta: The placenta appears to be forming posteriorly. No subplacental collection. Amniotic fluid volume: Subjectively appropriate for gestational age. Ovaries: The right ovary is not visualized. The left ovary is normal in size and appearance with normal blood flow, measuring 3.0 x 2.3 x 3.1 cm. An ill-defined 1.9 cm left ovarian cyst is identified. Additional findings: The cervix is closed and measures 4.3 cm. IMPRESSION Viable single intrauterine dated at 11 weeks 5 days. No acute abnormality is detected. 1.9 cm left ovarian cyst. The right ovary is not identified. Signer Name: Lucas Erickson Jr, MD Signed: 11/12/2021 11:43 AM Workstation Name: [id number] Transcribed By: TTR Dictated By: LUCAS ERICKSON JR, MD Electronically Authenticated By: LUCAS ERICKSON JR, MD Signed Date/Time: 11/12/21 1143 DD/ 1140 - Medical Decision [place] [address]. OB ultrasound shows an 11-week and 5-day IUP with a heart rate of 162. Patient blood type is B+ and therefore there is no indication for RhoGAM at this time. Her urinalysis is concerning for possible UTI, culture is pending and also contains yeast. CBC and CMP is unremarkable. Patient is currently resting comfortably laying on the bed on her phone. She is not toxic or ill-appearing and not in any significant distress. She has a soft nontender abdomen. She appears well-hydrated. Vital signs are stable. Discussed all results with patient. Discussed diagnoses and treatment plans with patient. Recommend that she calls for follow-up with [employer] next week but she understands to return to the ER if your symptoms changes or worsens in any way. Critical care attestation.: If time is entered above; I have spent that time in minutes in the direct care of this critically ill patient, excluding procedure time. ED Disposition Clinical Impression: Threatened miscarriage, UTI (urinary tract infection), Yeast vaginitis Disposition: HOME / SELF CARE / HOMELESS Is pt being admited?: No Does the pt Need Aspirin: No Condition: Stable Instructions: Vaginal Yeast Infection, Adult, and Urinary Tract Infection, Threatened Miscarriage, [id number] Additional Instructions: Take the keflex to help with UTI. I recommend 7 day monistat treatment for the yeast infection. Follow up with OBGYN next week. Return to ED if worse. Prescriptions: cephALEXin [Keflex] 500 mg PO Q8HR #15 cap Referrals: KADI HODGES MD [Primary Care Provider] - 3-5 Days
--- NOTE | 2021-11-12 11:47 | Ultrasound Report ---
FIRSTTRIMESTER OBSTETRIC ULTRASOUND HISTORY: Vaginal bleeding during COMPARISON: None. TECHNIQUE: Routine transvaginal OB ultrasound performed. FINDINGS: Uterus: Mildly enlarged measuring 14 x 9 x 9 cm. Gestational Sac: Well-defined oval shape and intrauterine in location. Yolk Sac: Normal in appearance. Fetus/Embryo: [place]-rump length of 5.05 cm, corresponding to an estimated gestational age of 11 weeks 5 days. Embryonic/ anatomy is too small for evaluation. Embryonic/ cardiac activity: 162bpm Placenta: The placenta appears to be forming posteriorly. No subplacental collection. Amniotic fluid volume: Subjectively appropriate for gestational age. Ovaries: The right ovary is not visualized. The left ovary is normal in size and appearance with nor mal blood flow, measuring 3.0 x 2.3 x 3.1 cm. An ill-defined 1.9 cm left ovarian cyst is identified. Additional findings: The cervix is closed and measures 4.3 cm. IMPRESSION Viable single intrauterine dated at 11 weeks 5 days. No acute abnormality is detected. 1.9 cm left ovarian cyst. The right ovary is not identified. Signer Name: Lucas Erickson Jr, MD Signed: 11/12/2021 11:43 AM Workstation Name: [id number]
[2021-11-12 11:52] LABS: Basophils # (Auto) 0.1 K/mm3 (0.0-0.1); Basophils % (Auto) 0.6 % (0.0-1.8); Eosinophils # (Auto) 0.1 K/mm3 (0.0-0.4); Eosinophils % (Auto) 0.8 % (0.0-4.3); Hematocrit 40.7 % (30.3-42.9); Hemoglobin 13.4 gm/dl (10.1-14.3); Lymphocytes # (Auto) 1.8 K/mm3 (1.2-5.4); Lymphocytes % (Auto) 19.3 % (13.4-35.0); Mean Corpuscular HGB Conc 33 % (30-34); Mean Corpuscular Volume 84 fl (79-97); Monocytes # (Auto) 0.6 K/mm3 (0.0-0.8); Monocytes % (Auto) 6.3 % (0.0-7.3); Platelet Count 341 K/mm3 (140-440); Red Blood Count 4.88 M/mm3 (3.65-5.03); Red Cell Distribution Width 14.5 % (13.2-15.2)
[2021-11-12 11:57] LABS: Bilirubin,Urine NEG (Negative); Blood,Urine LG (Negative); Color,Urine Amber (Yellow); Mucus,Urine 2+ /HPF
[2021-11-12 12:33] LABS: Alanine Aminotransferase 13 units/L (7-56); BUN/Creatinine Ratio 10; Blood Urea Nitrogen 4 mg/dL (7-17); Calcium 9.3 mg/dL (8.4-10.2); Hemolysis Index 0
[2021-11-12 13:01] VITALS: BP 108/72
== END 2021-11-12 13:01 | disposition home or self-care (01) ==
LOC: ED 07:43
DX: O20.0 Threatened abortion (principal); N39.0 Urinary tract infection, site not specified; B37.3 Candidiasis of vulva and vagina; Z3A.11 11 weeks gestation of pregnancy
CPT/HCPCS: 36415; 76817; 80053; 81001; 84702; 85025; 86900; 86901; 87086; 99284

== ENCOUNTER 2022-02-25 17:38 | Outpatient (CLI) | payer MEDICAID ==
[2022-02-25] MEDS ORDERED: LACTATED RINGERS 500 ML IV ONE (18:36)
--- NOTE | 2022-02-25 20:32 | Ultrasound Report ---
ULTRASOUND OBSTETRIC LIMITED ULTRASOUND BIOPHYSICAL PROFILE INDICATION / CLINICAL INFORMATION: Patient fell on stomach. Assess well-being. Rule out placent al abruption.. - Clinical Gestational Age (GA) in weeks, days: 27, 0 TECHNIQUE: Transabdominal. COMPARISON: None available. FINDINGS: BREATHING MOVEMENT = 2 GROSS BODY MOVEMENT = 2 TONE = 2 QUALITATIVE AMNIOTIC FLUID VOLUME = 2 TOTAL BIOPHYSICAL SCORE = 8/8 HEART RATE (beats per minute): 156 AMNIOTIC FLUID INDEX (cm) = subjectively normal (normal = 7-24 cm) PRESENTATION: Breech. ADDITIONAL FINDINGS: Placenta is fundal. No placental abruption. IMPRESSION: 1. Biophysical Score = 8/8 2. No acute sonographic abnormality. No placental abruption. Signer Name: Brenda Han MD Signed: 02/25/2022 8:28 PM Workstation Name: [id number]
== END 2022-02-25 22:45 | disposition home or self-care (01) ==
LOC: TRG 17:38 → APU 17:40 → TRG 22:45
PROVIDERS: ATTEND Student in an Organized Health Care Education/Training Program
DX: O26.893 Other specified pregnancy related conditions, third trimester (principal); Z3A.27 27 weeks gestation of pregnancy; W01.0XXA Fall on same level from slipping, tripping and stumbling without subsequent striking against object, initial encounter; Y93.89 Activity, other specified; Y92.009 Unspecified place in unspecified non-institutional (private) residence as the place of occurrence of the external cause; Y99.8 Other external cause status
CPT/HCPCS: 76815; 76819; 85460; 86850; 86900; 86901